=== PATIENT | male | born 1940 | race Caucasian/White ===

== ENCOUNTER 2016-11-24 17:21 | Emergency (ER) | payer OTHER ==
[~2016-11-24] VITALS: Ht 182.9 cm; Wt 100.0 kg
[~2016-11-24 17:21] MED LIST: ASPEC325 PO; CLC100 PO; FIBER SUPPLEMENT PO; GLC/500 PO; SIMV20TA2 PO; TRVOPS OP; fiber supplement PO
[2016-11-24 17:26] VITALS: TEMP 36.2; Ht 182.9 cm; Wt 100.0 kg
--- NOTE | 2016-11-24 17:52 | EMERGENCY ROOM VISIT NOTE ---
History Report prepared by Tasha: Brandon Cordova Under the Supervision of: Dr. Betty Watkins M.D. First contact with patient: 17:32 Chief Complaint: FALL Stated Complaint: FALL, HEAD INJURY History of Present Illness The patient is a 76 year old male who presents to the Emergency Room with complaints of a sudden mechanical fall that occurred prior to arrival. Per the patient's , the patient was getting out of his car to go eat at a restaurant. The patient got out, and then went to the back door of the car. At that time, the patient fell and per the patient's , the patient fell off the curb and "cracked" his head. He has a large hematoma and abrasion to his scalp from the fall. It took 3 people to get the patient up and back into the car. The patient was argumentative on the way to the ER, per the patient's . Loss of consciousness was denied. Source of History: spouse/significant other Onset: Prior to arrival Position: other (global - fall) Timing: other (sudden) Associated Symptoms: No LOC Note: Associated symptoms: Large hematoma and abrasion to scalp. Review of Systems See HPI for pertinent positives & negatives. A total of 10 systems reviewed and were otherwise negative. Past Medical & Surgical Medical Problems: (1) DM (diabetes mellitus) (2) History of kidney stones (3) HTN (hypertension) (4) Hx-Prostatic Malignancy (5) Personal History Of Colonic Polyps Surgical Problems: (1) History of cataract surgery Family History Diabetes mellitus Gallbladder disease Heart disease MOTHER Hypertension Social History Smoking Status: Former Smoker Alcohol Use: none Drug Use: none Marital Status: Housing Status: lives with family Occupation Status: retired Current/Historical Medications Scheduled Aspirin (Aspirin Ec), 81 MG PO DAILY Docusate Sodium (Colace *), 200 MG PO HS Meloxicam (Mobic), 7.5 MG PO BID Metformin Hcl (Glucophage), 1,000 MG PO BID Simvastatin (Zocor), 20 MG PO QPM Travoprost (Travatan Oph Soln 0.004% *), 1 DROP OP HS [Fiber Supplement], 2 TABS PO HS Scheduled PRN [fiber supplement], 1 TAB PO QAM PRN for PRN Allergies Coded Allergies: No Known Allergies (Unverified , 07/13/15) Physical Exam Vital Signs Date Time Temp Pulse Resp B/P Pulse Ox O2 Delivery O2 Flow Rate FiO2 11/24/16 18:21 75 11/24/16 18:15 80 16 145/89 97 Room Air 78 153/88 81 11/24/16 17:26 36.2 83 18 159/87 97 Room Air Physical Exam CONSTITUTIONAL: Mild painful distress. HEENT: No icterus, moist mucous membranes NECK: No meningismus, trachea is midline. CARDIOVASCULAR: Regular rate, normal perfusion RESPIRATORY: Unlabored breathing. Clear to auscultation. GASTROINTESTINAL: Non-tender GENITOURINARY: No flank tenderness MUSCULOSKELETAL: Full range of motion NEUROLOGIC: No acute gross focal deficits. PSYCHIATRIC: Normal affect SKIN: Large hematoma and abrasion to occiput. Medical Decision & Procedures ER Provider Diagnostic Interpretation: CT results as stated below per my review and radiologist interpretation. CT HEAD WITHOUT CONTRAST (CT) CLINICAL HISTORY: Head pain status post trauma COMPARISON STUDY: No previous studies for comparison. TECHNIQUE: Axial CT of the brain is performed from the vertex to the skull base. IV contrast was not administered for this examination. CT DOSE: FINDINGS: No intra or extra-axial mass lesions are visualized. There is no CT evidence of acute cortical infarction. There is no evidence of midline shift. There is no acute hemorrhage. No calvarial fractures are visualized. There are patchy white matter hypodensities likely on a small vessel basis. There is mild ventricular dilatation, likely secondary to volume loss. There is no evidence of acute sinusitis. There is a posterior scalp hematoma. IMPRESSION: Posterior scalp hematoma. No acute intracranial findings. Electronically signed by: Armand Hsu M.D. 11/24/2016 6:12 PM Dictated Date/Time: 11/24/2016 6:[address] OF THE CERVICAL SPINE CLINICAL HISTORY: Neck pain status post trauma COMPARISON STUDY: No previous studies for comparison. CT DOSE: 1058.44 mGy.cm TECHNIQUE: CT scan of the cervical spine was performed from the skull base to the thoracic inlet. Images are reviewed in the axial, sagittal, and coronal planes. IV contrast was not administered for this examination. FINDINGS: The visualized portions of the lung apices reveal no evidence of pneumothorax. The prevertebral soft tissues are normal. No acute fractures or traumatic subluxations are visualized. There are advanced multilevel degenerative changes. There is prominent posterior ossific spurring at the C5-6 and C6-7 levels. There is multilevel spinal stenosis. There is 4 mm of anterior subluxation of C3 on C4. This is likely degenerative. IMPRESSION: 1. Advanced multilevel degenerative changes with multilevel spinal stenosis 2. 4 mm of anterior subluxation of C3 on C4. This is felt to be degenerative 3. No evidence of acute fracture or traumatic subluxation Electronically signed by: Armand Hsu M.D. 11/24/2016 6:17 PM Dictated Date/Time: 11/24/2016 6:14 PM Laboratory Results Test 11/24/16 18:02 Bedside Hemoglobin 13.3 g/dl (14.0-18.0) Bedside Hematocrit 39 % (42-52) Bedside Sodium 140 mEq/L (135-144) Bedside Potassium 4.1 mEq/L (3.3-5.0) Bedside Chloride 103 mEq/L (101-112) Bedside Total CO2 24 mEq/l (24-31) Anion Gap 19.0 mmol/L (16-25) Bedside Blood Urea Nitrogen 28 mg/dl (7-18) Bedside Creatinine 0.6 mg/dl (0.6-1.3) Bedside Glucose (other) 142 mg/dl (70-99) Bedside Ionized Calcium (Bruno) 1.23 mmol/l (1.12-1.32) Labs reviewed by ED physician. ECG Indication: other (fall) Rate (beats per minute): 80 Rhythm: normal sinus Findings: other (normal axis, nonspecific-ST findings, normal intervals) ED Course 1739: Past medical records reviewed. The patient was evaluated in room C5. A complete history and physical examination was performed. 0: I reevaluated the patient and he is resting comfortably. The patient and his verbally expressed understanding and agreement of the treatment plan. The patient will be discharged. Medical Decision Differential diagnoses include: intracranial bleed, skull fracture, C-spine fracture, dysrhythmia. 76-year-old presents to the emergency department for evaluation after mechanical fall. He has been in his otherwise normal state of health was going to go out to dinner with his for their 54th anniversary. He had a large hematoma and abrasion to the occiput. He is acting normally without loss of consciousness. CT head and C-spine normal. I-STAT and orthostatics satisfactory. Patient has a long-standing history of chronic knee pain without acute change and mild gait dysfunction at baseline today. Patient appears jovial in no distress at the time of discharge 7:00pm. Impression Primary Impression: Head injury Scribe Attestation The scribe's documentation has been prepared under my direction and personally reviewed by me in its entirety. I confirm that the note above accurately reflects all work, treatment, procedures, and medical decision making performed by me. Departure Information Dispostion Home / Self-Care Referrals Pro,Benito Gustafson M.D. (PCP) Forms HOME CARE DOCUMENTATION FORM, IMPORTANT VISIT INFORMATION Patient Instructions ED Head Injury Closed, My [facility]
[2016-11-24 18:13] LABS: ISTAT CREATININE 0.6 mg/dl (0.6-1.3); ISTAT HEMOGLOBIN 13.3 g/dl (14.0-18.0); ISTAT IONIZED CALCIUM 1.23 mmol/l (1.12-1.32)
--- NOTE | 2016-11-24 18:13 | DIAGNOSTIC IMAGING REPORT ---
CT HEAD WITHOUT CONTRAST (CT) CLINICAL HISTORY: Head pain status post trauma COMPARISON STUDY: No previous studies for comparison. TECHNIQUE: Axial CT of the brain is performed from the vertex to the skull base. IV contrast was not administered for this examination. CT DOSE: FINDINGS: No intra or extra-axial mass lesions are visualized. There is no CT evidence of acute cortical infarction. There is no evidence of midline shift. There is no acute hemorrhage. No calvarial fractures are visualized. There are patchy white matter hypodensities likely on a small vessel basis. There is mild ventricular dilatation, likely secondary to volume loss. There is no evidence of acute sinusitis. There is a posterior scalp hematoma. IMPRESSION: Posterior scalp hematoma. No acute intracranial findings. Electronically signed by: Armand Hsu M.D. 11/24/2016 6:12 PM Dictated Date/Time: 11/24/2016 6:11 PM
[2016-11-24 18:15] VITALS: BP 153/88; O2SAT 97
[2016-11-24] MEDS ORDERED: ASPI81TA28 PO (18:16)
[2016-11-24] MEDS ORDERED: MELO7.5T5 PO (18:16)
--- NOTE | 2016-11-24 18:18 | DIAGNOSTIC IMAGING REPORT ---
CT OF THE CERVICAL SPINE CLINICAL HISTORY: Neck pain status post trauma COMPARISON STUDY: No previous studies for comparison. CT DOSE: 1058.44 mGy.cm TECHNIQUE: CT scan of the cervical spine was performed from the skull base to the thoracic inlet. Images are reviewed in the axial, sagittal, and coronal planes. IV contrast was not administered for this examination. FINDINGS: The visualized portions of the lung apices reveal no evidence of pneumothorax. The prevertebral soft tissues are normal. No acute fractures or traumatic subluxations are visualized. There are advanced multilevel degenerative changes. There is prominent posterior ossific spurring at the C5-6 and C6-7 levels. There is multilevel spinal stenosis. There is 4 mm of anterior subluxation of C3 on C4. This is likely degenerative. IMPRESSION: 1. Advanced multilevel degenerative changes with multilevel spinal stenosis 2. 4 mm of anterior subluxation of C3 on C4. This is felt to be degenerative 3. No evidence of acute fracture or traumatic subluxation Electronically signed by: Armand Hsu M.D. 11/24/2016 6:17 PM Dictated Date/Time: 11/24/2016 6:14 PM
[2016-11-24 18:21] VITALS: PULSE 75
== END 2016-11-24 19:17 | disposition home or self-care (01) ==
LOC: C.EDB 17:22 → C.EDC 19:17
DX: S00.03XA Contusion of scalp, initial encounter (principal); S00.01XA Abrasion of scalp, initial encounter; W10.1XXA Fall (on)(from) sidewalk curb, initial encounter; Y92.481 Parking lot as the place of occurrence of the external cause; E11.9 Type 2 diabetes mellitus without complications; I10 Essential (primary) hypertension; Z85.46 Personal history of malignant neoplasm of prostate; Z87.442 Personal history of urinary calculi; Z83.3 Family history of diabetes mellitus; Z82.49 Family history of ischemic heart disease and other diseases of the circulatory system

== ENCOUNTER → 2016-12-21 | Outpatient (CLI) | payer OTHER ==
[~2016-12-21] MED LIST changes: -ASPEC325 PO; +ASPI81TA28 PO; +MELO7.5T5 PO; +SULF800T23 PO; +TRAV0.00 OP
[2016-12-21 09:43] LABS: BASO % 0.4 %; BASO ABS # 0.02 K/uL (0-0.2); COMPLETE YES; EOS % 5.7 %; HEMATOCRIT 39.8 % (42-52); IG% 0.4 %; LYMPH % 11.6 %; LYMPH ABS # 0.61 K/uL (1.2-3.4); MEAN CELL VOLUME 89.2 fL (80-100); MEAN CORPUSCULAR HEMOGLOBIN 30.7 pg (25-34); MEAN CORPUSCULAR HGB CONC 34.4 g/dl (32-36); MEAN PLATELET VOLUME 9.7 fL (7.4-10.4); MONO % 11.4 %; NEUT % 70.5 %; PLATELET COUNT 217 K/uL (130-400); RED BLOOD COUNT 4.46 M/uL (4.7-6.1); WHITE BLOOD COUNT 5.25 K/uL (4.8-10.8)
[2016-12-21 10:01] LABS: ESTIMATED AVERAGE GLUCOSE 151 mg/dl; HA1C FLAG Normal (Normal)
[2016-12-21 10:13] LABS: BLOOD UREA NITROGEN 24 mg/dl (7-18); CREATININE 0.75 mg/dl (0.60-1.40); GLUCOSE 142 mg/dl (70-99)
[2016-12-21 10:14] LABS: ALT/SGPT 25 U/L (12-78); AST/SGOT 14 U/L (15-37); BUN/CREATININE RATIO 32.5 (10-20); CALCIUM 9.4 mg/dl (8.5-10.1); CARBON DIOXIDE 26 mmol/L (21-32); CHLORIDE 107 mmol/L (98-107); CHOLESTEROL 137 mg/dl (0-200); POTASSIUM 4.2 mmol/L (3.5-5.1); SODIUM 141 mmol/L (136-145)
[2016-12-21 10:17] LABS: CHOLESTEROL/HDL RATIO 2.2; FERRITIN 55.9 ng/ml (8.0-388.0); HDL CHOLESTEROL 63 mg/dl; LDL CHOLESTEROL CALCULATED 56 mg/dl; TOTAL IRON BINDING CAPACITY 327 mcg/dl (250-450); TRIGLYCERIDES 91 mg/dl (0-150); VERY LOW DENSITY LIPOPROT CALC 18 mg/dl
[2016-12-21 13:40] LABS: URINE APPEARANCE TURBID (CLEAR); URINE BILIRUBIN NEG (NEG); URINE COLOR YELLOW; URINE EPITHELIAL CELL AUTO 0-5 /lpf (0-5); URINE NITRITE NEG (NEG); URINE SPECIFIC GRAVITY 1.018 (1.000-1.030); UROBILINOGEN NEG (NEG)
[2016-12-21 13:42] LABS: MANUAL MICROSCOPIC REQUIRED? NO; REVIEW REQ? NO
== END | disposition home or self-care (01) ==
LOC: C.LAB1850 08:42
PROVIDERS: ATTEND Internal Medicine
DX: E11.9 Type 2 diabetes mellitus without complications (principal); R39.15 Urgency of urination; E78.5 Hyperlipidemia, unspecified; M79.604 Pain in right leg

== ENCOUNTER → 2017-01-09 | Outpatient (CLI) | payer OTHER ==
[2017-01-09 12:02] LABS: URINE APPEARANCE CLEAR (CLEAR); URINE BILIRUBIN NEG (NEG); URINE COLOR YELLOW; URINE EPITHELIAL CELL AUTO 0-5 /lpf (0-5); URINE NITRITE NEG (NEG); URINE SPECIFIC GRAVITY 1.021 (1.000-1.030); UROBILINOGEN NEG (NEG)
[2017-01-09 12:16] LABS: MANUAL MICROSCOPIC REQUIRED? NO; REVIEW REQ? YES
== END | disposition home or self-care (01) ==
LOC: C.LAB1850 10:33
PROVIDERS: ATTEND Internal Medicine
DX: R39.15 Urgency of urination (principal)

== ENCOUNTER → 2017-01-27 | Outpatient (CLI) | payer OTHER ==
[~2017-01-27] MED LIST changes: +CHOL1000 PO; +DOCU-94 PO; +FIBETAB2 PO
[2017-01-27 15:20] LABS: BLOOD UREA NITROGEN 22 mg/dl (7-18)
[2017-01-27 16:45] LABS: LYME DISEASE AB IGG NEG (NEG); LYME DISEASE AB IGM NEG (NEG)
== END | disposition home or self-care (01) ==
LOC: C.LAB1850 13:30
PROVIDERS: ATTEND Psychiatry & Neurology Neurology
DX: C61 Malignant neoplasm of prostate (principal); R26.81 Unsteadiness on feet; M79.604 Pain in right leg; M79.605 Pain in left leg; R41.3 Other amnesia

== ENCOUNTER → 2017-02-01 | Outpatient (CLI) | payer OTHER ==
[~2017-02-01] MED LIST changes: +GADAVIST IV PRN
--- NOTE | 2017-02-01 11:02 | DIAGNOSTIC IMAGING REPORT ---
MRI OF THE BRAIN WITHOUT AND WITH IV CONTRAST CLINICAL HISTORY: GAIT INSTABILITY, BILATERAL LEG PAIN, URINARY INCONTINENCE UPPER MOTOR NEURON SIGNS. COMPARISON STUDY: Head CT dated 11/24/2016 TECHNIQUE: MRI of the brain was performed from the vertex to the skull base utilizing various T1 and T2 weighted sequences. Following the IV administration of 9.9 mL of Gadavist contrast, additional enhanced images were obtained. The patient was imaged under 0.7 Giana open MRI scanner FINDINGS: Sagittal T1, axial diffusion, proton density and T2 weighted axial, coronal FLAIR, and pre and post axial T1-weighted images were acquired. These were supplemented with post gadolinium coronal T1 weighted images. No intra or extra-axial mass lesions are visualized. Axial diffusion-weighted images reveal no evidence of acute or subacute infarction. There is stable mild ventricular dilatation, likely secondary to volume loss. Proton density T2-weighted and FLAIR images reveal scattered foci of increased T2 signal within the white matter, likely on a small vessel basis. There is also subcortical focus of increased FLAIR signal within the left parietal vertex There are no abnormal flow voids. There is no evidence of pathologic enhancement. IMPRESSION: 1. No acute intracranial findings 2. No evidence of acute or subacute infarction 3. No evidence of intracranial mass 4. Mild ventricular dilatation, likely secondary to volume loss, however, normal pressure hydrocephalus cannot be excluded given the reported clinical symptoms Electronically signed by: Armand Hsu M.D. 02/01/2017 11:01 AM Dictated Date/Time: 02/01/2017 10:58 AM
== END | disposition home or self-care (01) ==
LOC: C.OPENMRI 09:49
PROVIDERS: ATTEND Psychiatry & Neurology Neurology
DX: R26.81 Unsteadiness on feet (principal); M79.604 Pain in right leg; M79.605 Pain in left leg; R32 Unspecified urinary incontinence

== ENCOUNTER → 2017-02-21 | Outpatient (CLI) | payer OTHER ==
[~2017-02-21] MED LIST changes: -GADAVIST IV PRN
--- NOTE | 2017-02-21 15:07 | DIAGNOSTIC IMAGING REPORT ---
BONE SCAN WHOLE BODY CLINICAL HISTORY: Prostate carcinoma COMPARISON STUDY: 07/20/2015, CT scan abdomen pelvis dated 06/23/2015 FINDINGS: The patient was injected with 26.2 mCi of technetium 99m MDP. Three-hour delayed whole body images were acquired. There are foci of increased activity within the left knee and both feet consistent with degenerative/arthritic change. There are moderately intense foci of increased activity within the spine and lumbosacral junction. This is slightly more intense on the prior study. 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 There is a focus of increased activity within the left wrist, consistent with arthritic disease. There are no findings of increased activity viewed as suspicious for skeletal metastasis. IMPRESSION: No scintigraphic evidence of skeletal metastasis. Electronically signed by: Armand Hsu M.D. 02/21/2017 3:05 PM Dictated Date/Time: 02/21/2017 3:02 PM
== END | disposition home or self-care (01) ==
LOC: C.NUCL 11:01
PROVIDERS: ATTEND Urology
DX: C61 Malignant neoplasm of prostate (principal)

== ENCOUNTER → 2017-03-30 | Outpatient (CLI) | payer OTHER ==
[2017-03-30 12:48] LABS: URINE APPEARANCE TURBID (CLEAR); URINE BILIRUBIN NEG (NEG); URINE COLOR YELLOW; URINE NITRITE NEG (NEG); UROBILINOGEN NEG (NEG)
[2017-03-30 12:57] LABS: MANUAL MICROSCOPIC REQUIRED? NO; REVIEW REQ? YES
[2017-03-30 12:58] LABS: SULFASALICYLIC ACID POS (NEG)
== END | disposition home or self-care (01) ==
LOC: C.LABSPEC 10:15
PROVIDERS: ATTEND Nurse Practitioner Adult Health
DX: R31.9 Hematuria, unspecified (principal)

== ENCOUNTER → 2017-04-19 | Outpatient (CLI) | payer OTHER ==
[2017-04-19 10:14] LABS: ESTIMATED AVERAGE GLUCOSE 146 mg/dl; HA1C FLAG Normal (Normal)
[2017-04-19 10:20] LABS: CALCIUM 9.5 mg/dl (8.5-10.1)
[2017-04-19 10:29] LABS: ALT/SGPT 25 U/L (12-78); AST/SGOT 15 U/L (15-37); BLOOD UREA NITROGEN 19 mg/dl (7-18); BUN/CREATININE RATIO 27.8 (10-20); CARBON DIOXIDE 29 mmol/L (21-32); CHLORIDE 106 mmol/L (98-107); CHOLESTEROL 139 mg/dl (0-200); CHOLESTEROL/HDL RATIO 2.1; CREATININE 0.69 mg/dl (0.60-1.40); GLUCOSE 105 mg/dl (70-99); HDL CHOLESTEROL 67 mg/dl; LDL CHOLESTEROL CALCULATED 58 mg/dl; POTASSIUM 4.6 mmol/L (3.5-5.1); SODIUM 142 mmol/L (136-145); TRIGLYCERIDES 70 mg/dl (0-150); VERY LOW DENSITY LIPOPROT CALC 14 mg/dl
== END | disposition home or self-care (01) ==
LOC: C.LAB1850 09:13
PROVIDERS: ATTEND Internal Medicine
DX: I10 Essential (primary) hypertension (principal); E78.5 Hyperlipidemia, unspecified; E11.9 Type 2 diabetes mellitus without complications

== ENCOUNTER → 2017-04-26 | Outpatient (CLI) | payer OTHER ==
[~2017-04-26] MED LIST changes: -CHOL1000 PO; -DOCU-94 PO; -FIBETAB2 PO
[2017-04-26 16:30] LABS: URINE APPEARANCE CLEAR (CLEAR); URINE BILIRUBIN NEG (NEG); URINE COLOR YELLOW; URINE NITRITE NEG (NEG); URINE PH 5.5 (4.5-7.5); UROBILINOGEN NEG (NEG)
[2017-04-26 16:32] LABS: MANUAL MICROSCOPIC REQUIRED? NO; REVIEW REQ? YES
[2017-04-26 16:43] LABS: URINE MUCUS PRESENT (NONE PRSENT)
== END | disposition home or self-care (01) ==
LOC: C.LABSPEC 15:50
PROVIDERS: ATTEND Internal Medicine
DX: N39.0 Urinary tract infection, site not specified (principal)

== ENCOUNTER 2017-05-09 16:48 | Emergency (ER) | payer OTHER ==
[~2017-05-09] VITALS: Ht 177.8 cm; Wt 93.0 kg
[~2017-05-09 16:48] MED LIST changes: -SULF800T23 PO; -TRAV0.00 OP
[2017-05-09 16:52] VITALS: TEMP 36.5; Ht 177.8 cm; Wt 93.0 kg
--- NOTE | 2017-05-09 17:26 | EMERGENCY ROOM VISIT NOTE ---
ED Visit Note First contact with patient: 17:02 CHIEF COMPLAINT: Rib injury HISTORY OF PRESENT ILLNESS: This 77-year-old male patient presents to the emergency department with his complaining of pain in the left lower anterior ribs after after tripping and falling striking his ribs off of the handle of his recliner. There is increased pain with deep breathing or coughing. Attempting to ambulate is painful. Denies shortness of breath or coughing up blood. The patient rates the pain as sharp and 3/10. The patient has taken no ixwk-hom-scjqkmo medications for relief of the pain. The patient denies previous fractures to the ribs. The patient denies any other injury. The patient denies any abdominal pain, nausea, or vomiting. REVIEW OF SYSTEMS: A 6 system review of systems was completed with positives and pertinent negatives listed in the HPI. ALLERGIES: No known drug allergies MEDICATIONS: Metformin 1000 mg twice daily, Zocor 20 mg daily, Travatan drops, aspirin 81 mg daily. These medications were personally reviewed by myself with the patient and the patient's . PMH: Diabetes mellitus type 2 SOCIAL HISTORY: Quit smoking in the 1970s, does not drink alcohol. Lives at home with his . PHYSICAL EXAM: VITALS: Vitals are noted on the nurse's note and reviewed by myself. Vital signs stable. GENERAL: 77-year-old male, in no acute distress, nondiaphoretic, well-developed well-nourished. LUNGS: Clear to auscultation and breath sounds equal, no wheezes, rales, or rhonchi. HEART: Heart sounds are regular without murmurs, ectopy, gallop, or rub. CHEST: The left anterior lower chest wall is tender to palpation over the ninth through 11th ribs but there is no fracture crepitus and no ecchymosis. There is no tachypnea or dyspnea. ABDOMEN: Positive bowel sounds x 4. Normal tympanic percussion. Soft, nontender, without masses or organomegaly. No guarding or rebound tenderness. NEURO: Patient was alert and oriented to person place and time. EMERGENCY DEPARTMENT COURSE: I examined the patient. X-rays of the chest with left rib detail was reviewed by myself and the radiologist Patient: DARLIN NGUYEN Address1: [address] [place] [address] Rec: [id number] Address2: Acct ID: [id number] [facility] Zip: [place] [address] Date: 1940 Sex: M Room/Bed: Ref Phy: Benito Lehman M.D. SC: BIRD Att Phy: Report #: [id number] [place] Phy: Benito Lehman M.D. Test: RUWC Admit Phy: Ski Instructor: CHRISTOPHER Interpreting Phy: Armand Hsu M.D. Diagnosis: FALL- PAIN IN LEFT RIB AREA Ordering Phy: Delia Cox PA-C Service Date: 05/09/17 Admit Date: 05/09/17 MNE: [id number] CONF: DICTATED BY: Armand Hsu M.D.]] CC: Georges Lees M.D. Pro, Jeffrey W., M.D. Urban, Angela P., PA-C Endcc: [~ rep ct add3]] LEFT RIBS UNILATERAL WITH PA CHEST CLINICAL HISTORY: Left rib pain status post trauma COMPARISON STUDY: Chest x-ray dated 02/22/2014 FINDINGS: The erect chest reveals no pneumothorax. There is no focal pulmonary consolidation. No left-sided rib fractures are visualized. IMPRESSION: No evidence of pneumothorax. No left-sided rib fractures are visualized Electronically signed by: Armand Hsu M.D. 05/09/2017 6:25 PM Dictated Date/Time: 05/09/2017 6:24 PM The status of this report is Signed. Draft = Not yet reviewed or approved by Radiologist. Signed = Reviewed and approved by Radiologist. <AttendingPhy></AttendingPhy> <FamilyPhy>Benito Lehman M.D.</FamilyPhy> < PrimaryPhy>Benito Lehman M.D.</PrimaryPhy> <UnitNumber>[id number]</UnitNumber > <VisitNumber>[id number] DIFFERENTIAL DIAGNOSIS: Rib contusion, pneumothorax, rib fracture, intra- abdominal injury DIAGNOSIS: Left rib pain TREATMENT and DISCHARGE INSTRUCTIONS: Please use the incentive spirometer a few times each hour for the next 5 days You may use [id number] Tylenol and ibuprofen for pain relief. Alternating these medications may give you better pain relief Ibuprofen 400 mg and/or Tylenol 500 mg every 8 hours. Ibuprofen --4 HRS--> Tylenol --4 HRS--> ibuprofen --4 HRS--> Tylenol .... Please follow up with your primary care physician within one week for a recheck Return to the emergency department if you have any of the following symptoms: -Worsening pain -Difficulty breathing -Severe abdominal pain -Dark stools -Vomiting
[2017-05-09] MEDS ORDERED: SULF800T23 PO (17:27)
[2017-05-09] MEDS ORDERED: TRAV0.00 OP (17:27)
--- NOTE | 2017-05-09 18:27 | DIAGNOSTIC IMAGING REPORT ---
LEFT RIBS UNILATERAL WITH PA CHEST CLINICAL HISTORY: Left rib pain status post trauma COMPARISON STUDY: Chest x-ray dated 02/22/2014 FINDINGS: The erect chest reveals no pneumothorax. There is no focal pulmonary consolidation. No left-sided rib fractures are visualized. IMPRESSION: No evidence of pneumothorax. No left-sided rib fractures are visualized Electronically signed by: Armand Hsu M.D. 05/09/2017 6:25 PM Dictated Date/Time: 05/09/2017 6:24 PM
--- NOTE | 2017-05-09 19:15 | EMERGENCY ROOM VISIT NOTE ---
ED Visit Note First contact with patient: 17:02 Patient was seen by our PA/HONEYCOMB DECAPPER. I was involved in the patient's care and did evaluate the patient myself. I was involved in the care throughout the ER stay. The patient presents with left lower rib pain after falling. No fractured ribs by film, no pneumothorax or pulmonary contusion. There is no pain in the area of the spleen. The patient likely has contused the chest wall, he is being discharged home.
[2017-05-09 19:33] VITALS: BP 141/75; PULSE 84; O2SAT 92
== END 2017-05-09 19:34 | disposition home or self-care (01) ==
LOC: C.EDB 16:50 → C.EDC 19:34
DX: R07.81 Pleurodynia (principal); W01.0XXA Fall on same level from slipping, tripping and stumbling without subsequent striking against object, initial encounter; E11.9 Type 2 diabetes mellitus without complications; Z79.84 Long term (current) use of oral hypoglycemic drugs; Z79.82 Long term (current) use of aspirin; Z87.891 Personal history of nicotine dependence

== ENCOUNTER → 2017-05-24 | Outpatient (CLI) | payer OTHER ==
[~2017-05-24] MED LIST changes: -CLC100 PO; -FIBER SUPPLEMENT PO; -MELO7.5T5 PO; +SULF800T23 PO; +TRAV0.00 OP; -TRVOPS OP; -fiber supplement PO
[2017-05-24 15:00] LABS: URINE APPEARANCE CLEAR (CLEAR); URINE BILIRUBIN NEG (NEG); URINE COLOR YELLOW; URINE NITRITE NEG (NEG); URINE PH 5.5 (4.5-7.5); URINE SPECIFIC GRAVITY 1.017 (1.000-1.030); UROBILINOGEN NEG (NEG)
[2017-05-24 15:14] LABS: MANUAL MICROSCOPIC REQUIRED? NO; REVIEW REQ? YES
[2017-05-24 15:29] LABS: ZZUR CULT IF INDIC CLEAN CATCH YES
== END | disposition home or self-care (01) ==
LOC: C.LAB1850 13:40
PROVIDERS: ATTEND Internal Medicine
DX: N39.0 Urinary tract infection, site not specified (principal); C61 Malignant neoplasm of prostate

== ENCOUNTER → 2017-05-31 | Outpatient (CLI) | payer OTHER | END | disposition home or self-care (01) | LOC: C.PATHSPEC 16:58 → C.LABSPEC 17:04 | PROVIDERS: ATTEND Urology | DX: C61 Malignant neoplasm of prostate (principal) ==

== ENCOUNTER → 2017-09-12 | Outpatient (CLI) | payer OTHER ==
[~2017-09-12] MED LIST changes: +CHOL1000 PO; +DOCU-94 PO; +FIBETAB2 PO; -SULF800T23 PO
[2017-09-12 09:33] LABS: HEMATOCRIT 39.1 % (42-52); MEAN CORPUSCULAR HEMOGLOBIN 31.3 pg (25-34); MEAN PLATELET VOLUME 9.3 fL (7.4-10.4); PLATELET COUNT 175 K/uL (130-400); RED BLOOD COUNT 4.25 M/uL (4.7-6.1); WHITE BLOOD COUNT 3.71 K/uL (4.8-10.8)
[2017-09-12 09:44] LABS: ESTIMATED AVERAGE GLUCOSE 128 mg/dl; HA1C FLAG Normal (Normal)
[2017-09-12 10:17] LABS: BLOOD UREA NITROGEN 19 mg/dl (7-18); CREATININE 0.69 mg/dl (0.60-1.40); GLUCOSE 110 mg/dl (70-99)
[2017-09-12 10:18] LABS: ALT/SGPT 28 U/L (12-78); AST/SGOT 18 U/L (15-37); BUN/CREATININE RATIO 28.1 (10-20); CALCIUM 8.9 mg/dl (8.5-10.1); CARBON DIOXIDE 26 mmol/L (21-32); CHLORIDE 106 mmol/L (98-107); SODIUM 139 mmol/L (136-145)
[2017-09-12 10:22] LABS: ALB/GLOB RATIO 1.1 (0.9-2); ALKALINE PHOSPHATASE 65 U/L (45-117); CHOLESTEROL 130 mg/dl (0-200); CHOLESTEROL/HDL RATIO 1.9; HDL CHOLESTEROL 69 mg/dl; LDL CHOLESTEROL CALCULATED 43 mg/dl; TRIGLYCERIDES 89 mg/dl (0-150); VERY LOW DENSITY LIPOPROT CALC 18 mg/dl
== END | disposition home or self-care (01) ==
LOC: C.LAB1850 08:46
PROVIDERS: ATTEND Internal Medicine
DX: C61 Malignant neoplasm of prostate (principal); N20.0 Calculus of kidney; E11.9 Type 2 diabetes mellitus without complications; R60.9 Edema, unspecified; E78.5 Hyperlipidemia, unspecified

== ENCOUNTER → 2017-10-03 | Day surgery (SDC) | payer OTHER ==
[2017-09-07 11:00] VITALS: Ht 177.8 cm; Wt 95.5 kg
[~2017-10-03] VITALS: Ht 177.8 cm; Wt 95.5 kg
[~2017-10-03] MED LIST changes: +500ML BSS 0.3ML EPI 1:1000PF IRRIG ONE; +ACETAMINOPHEN 325 MG TAB PO PRN; +AMVISC PLUS 0.8ML SYRINGE INT OCU ONE; +ATROPINE SULFATE 0.1 MG/ML 5ML SYR IV PRN; +BSS FLUSH ONE; +EpHEDrine SULFATE INJ 50 MG/ML AMP IV PRN; +EpINEphrine INJ 1MG/ML AMP 1 MG/ML AMP ONE; +LACTATED RINGER'S 1000ML 500 ML IV SCH; +LIDOCAINE 3.5% OPH GEL PER APPLICATION CHARGE ONE; +LIDOCAINE HCL 1% MPF 2 ML VIAL ONE; +MIDAZOLAM HCL 1 MG/ML 2ML VIAL ONE; +OCUCOAT 1 ML SOLN IO ONE; +POVIDONE-IODINE OP SOLN 30 ML BTL ONE; +PROPARACAINE 0.5% OP SOLN PER DROP CHARGE OPR SCH; +TOBRAMYCIN/DEXAMETHASONE OPH OINT PER APPLN CHARGE ONE
[2017-10-03] MEDS: PHENYLEPHRINE HCL 2.5% OP SOLN PER DROP CHARGE OPR SCH ×2 (06:37→06:43)
[2017-10-03] MEDS: TROPICAMIDE 1% OP SOLN PER DROP CHARGE OPR SCH ×2 (06:38→06:44)
[2017-10-03] MEDS: CYCLOPENTOLATE HCL 1% OP SOLN PER DROP CHARGE OPR SCH ×2 (06:39→06:44)
[2017-10-03] MEDS: KETOROLAC 0.5% OP SOLN PER DROP CHARGE OPR SCH ×2 (06:40→06:45)
[2017-10-03] MEDS: GATIFLOXACIN OP SOLN PER DROP CHARGE OPR SCH ×2 (06:41→06:51)
--- NOTE | 2017-10-03 06:53 | History & Physical Bridge - SC ---
H&P Re-Evaluation Bridge Note: I have examined the patient, reviewed the History & Physical and in the interval since the performance of the History & Physical I have noted the following changes of clinical significance: No changes noted
--- NOTE | 2017-10-03 07:19 | Discharge Instructions-SurgCtr ---
Discharge Instructions Date of Service Oct 03, 2017. Visit Reason for Visit: Cataract Right Eye Discharge Discharge Diagnosis / Problem: cataract Discharge Goals Goal(s): Improve function Medications Stopped Medications Name(s): stopped metformin on 09/30/2017 Activity Recommendations Activity Limitations: per Instructions/Follow-up section Anesthesia . Post Anesthesia Instructions: If you have had General Anesthesia or IV Sedation: * Do not drive today. * Resume driving when surgeon permits. * Do not make important decisions or sign legal documents today. * Call surgeon for: 1. Temperature elevations greater than 101 degrees F. 2. Uncontrollable pain. 3. Excessive bleeding. 4. Persistent nausea and vomiting. 5. Medication intolerance (nausea, vomiting or rash). * For nausea and vomiting use only clear liquids such as: tea, soda, bouillon until nausea subsides, then gradually increase diet as tolerated. * If you have any concerns or questions, call your surgeon's office. If physician is unavailable and it is an emergency, call 911 or go to the nearest emergency room. . Diet Recommendations Home Diet: resume previous diet Procedures Procedures Performed: Right Eye Cataract Phacoemulsification With Intraocular Lens Implant Pending Studies Studies pending at discharge: no Medical Emergencies . Who to Call and When: Medical Emergencies: If at any time you feel your situation is an emergency, please call 911 immediately. . Non-Emergent Contact Non-Emergency issues call your: Regional Hr Manager . . "Provider Documentation" section prepared by Sukhdev Em. .
--- NOTE | 2017-10-03 07:19 | [facility] Operative Report ---
Operative Report Date of Service Oct 03, 2017. Operative Report 1. PREOPERATIVE DIAGNOSIS: Cataract of the right eye. 2. POSTOPERATIVE DIAGNOSIS: Same. 3. PROCEDURE: Phacoemulsification with intraocular lens implantation of the right eye. SURGEON: Dr. Sukhdev Em. ANESTHESIA: Topical Lidocaine gel, 1% Non- Preserved intracameral Lidocaine, and monitored intravenous sedation. INDICATIONS FOR THE PROCEDURE: The patient is a 77 - year-old male with a history of cataract of the right eye causing significant visual impairment. The details of the proposed procedure were explained to the patient who asked appropriate questions and following discussion of all risks, benefits and alternatives agreed to have the procedure done. 4. OPERATION AND FINDINGS: DESCRIPTION OF PROCEDURE: After informed consent was obtained, the patient was brought to the Operating Room at the [facility]. The patient was placed in a supine position and then the right eye was prepped and draped in the usual sterile fashion for intraocular surgery. A drop of topical Lidocaine gel was placed in the operative eye. A wire lid speculum was then placed in the fornices. A corneal paracentesis was then created temporally. The Non-Preserved Lidocaine was then instilled into the anterior chamber. The anterior chamber was then pressurized with viscoelastic. A 2.0 mm clear corneal incision was then created temporally. A cystotome was inserted into the anterior chamber and used to create a tear in the anterior lens capsule. This capsular tear was then used to create a small flap and the flap was dragged in a counterclockwise direction in order to create a continuous curvilinear capsulorrhexis. Hydrodissection was accomplished with balanced salt solution. Phacoemulsification of the lens nucleus was then performed in a standard cmonri-xsj-mefvwls technique. The phaco time was 25 seconds with an average power of 12 %. The remaining cortical material was removed using irrigation aspiration. The capsular bag was then filled with viscoelastic. A [employer]ch [employer] Lomb MI60L +19.0 diopters lens was then loaded into the injector and injected into the capsular bag. The remaining viscoelastic was removed with the irrigation aspiration handpiece. The wound was hydrated and then checked and found to be watertight. The intraocular pressure was checked and found to be adequate. The wire lid speculum was removed and the patient's face was cleaned and dried. TobraDex ointment was placed in the inferior fornix. The patient was discharged to the Recovery Room having tolerated the procedure well. There were no complications. The patient will be seen tomorrow in the office for follow-up. I attest to the content of the Intraoperative Record and any orders documented therein. Any exceptions are noted below.
[2017-10-03 07:22] VITALS: TEMP 36.4
[2017-10-03 07:38] VITALS: BP 141/62; PULSE 58; O2SAT 97
--- NOTE | 2017-10-03 07:47 | Anesthesiology Progress Note ---
Anesthesia Post Op Note Date & Time Oct 03, 2017 at 07:46 Vital Signs Pain Intensity: 0 Vital Signs Past 12 Hours Date Time Temp Pulse Resp B/P (MAP) Pulse Ox O2 Delivery O2 Flow Rate FiO2 10/03/17 07:38 58 16 141/62 (88) 97 Room Air 10/03/17 07:22 36.4 68 16 146/84 (104) 96 Room Air 10/03/17 06:29 36.6 83 20 115/88 (97) 95 Room Air Notes Mental Status: alert / awake / arousable, participated in evaluation Nausea / Vomiting: adequately controlled Pain: adequately controlled Airway Patency, RR, SpO2: stable & adequate BP & HR: stable & adequate Hydration State: stable & adequate Anesthetic Complications: no major complications apparent
== END | disposition home or self-care (01) ==
LOC: X.SURG 06:16
PROVIDERS: ATTEND Ophthalmology
DX: E11.36 Type 2 diabetes mellitus with diabetic cataract (principal); E78.5 Hyperlipidemia, unspecified; I10 Essential (primary) hypertension; E11.42 Type 2 diabetes mellitus with diabetic polyneuropathy; C61 Malignant neoplasm of prostate; M17.10 Unilateral primary osteoarthritis, unspecified knee; Z87.891 Personal history of nicotine dependence; Z79.82 Long term (current) use of aspirin; Z79.84 Long term (current) use of oral hypoglycemic drugs; Z79.899 Other long term (current) drug therapy

== ENCOUNTER → 2017-10-12 | Outpatient (CLI) | payer OTHER ==
[~2017-10-12] MED LIST changes: -500ML BSS 0.3ML EPI 1:1000PF IRRIG ONE; -ACETAMINOPHEN 325 MG TAB PO PRN; -AMVISC PLUS 0.8ML SYRINGE INT OCU ONE; -ATROPINE SULFATE 0.1 MG/ML 5ML SYR IV PRN; -BSS FLUSH ONE; -EpHEDrine SULFATE INJ 50 MG/ML AMP IV PRN; -EpINEphrine INJ 1MG/ML AMP 1 MG/ML AMP ONE; -LACTATED RINGER'S 1000ML 500 ML IV SCH; -LIDOCAINE 3.5% OPH GEL PER APPLICATION CHARGE ONE; -LIDOCAINE HCL 1% MPF 2 ML VIAL ONE; -MIDAZOLAM HCL 1 MG/ML 2ML VIAL ONE; -OCUCOAT 1 ML SOLN IO ONE; -POVIDONE-IODINE OP SOLN 30 ML BTL ONE; -PROPARACAINE 0.5% OP SOLN PER DROP CHARGE OPR SCH; -TOBRAMYCIN/DEXAMETHASONE OPH OINT PER APPLN CHARGE ONE
== END | disposition home or self-care (01) ==
LOC: C.LABSPEC 17:11
PROVIDERS: ATTEND Urology
DX: N39.0 Urinary tract infection, site not specified (principal)

== ENCOUNTER → 2017-11-01 | Outpatient (CLI) | payer OTHER | END | disposition home or self-care (01) | LOC: C.LABSPEC 10:43 | PROVIDERS: ATTEND Urology | DX: C61 Malignant neoplasm of prostate (principal); R39.15 Urgency of urination; N39.0 Urinary tract infection, site not specified ==

== ENCOUNTER 2017-11-17 10:17 | Emergency (ER) | payer OTHER ==
[~2017-11-17] VITALS: Ht 177.8 cm; Wt 87.3 kg
[2017-11-17 10:45] VITALS: TEMP 36.5; Ht 177.8 cm; Wt 87.3 kg
--- NOTE | 2017-11-17 11:16 | EMERGENCY ROOM VISIT NOTE ---
History Report prepared by Tasha: Isai Dejesus Under the Supervision of: Dr. Obed Torres M.D. First contact with patient: 11:07 Chief Complaint: CONSTIPATION Stated Complaint: DR LEHMAN REFFERED, UNABLE TO MOVE BOWELS Nursing Triage Summary: Constipation x5 days. 4 doses of mirilax without results. Pt feels like he has to go, but is unable. Per pts pt has not had a "good" bowel movement since last Monday when she gave him an enema, pts tried this again at home and has not had results. History of Present Illness The patient is a 77 year old male who presents to the Emergency Room with complaints of "off and on" constipation that the patient has been experiencing for the past 2.5 weeks. Per the patient's who is an RN the patient received an Enema last Monday. The Enema allowed him to pass a few hard pellets of stool. Since this Enema 5 days ago, the patient has not had a bowel movement. The patient's has administered 4 doses of MiraLAX and tried to disimpact the patient. He currently feels the need to go, but cannot. He denies any nausea, vomiting, fever, or abdominal distention. 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 A total of 10 systems reviewed and were otherwise negative. Past Medical & Surgical Medical Problems: (1) DM (diabetes mellitus) (2) History of kidney stones (3) HTN (hypertension) (4) Hx-Prostatic Malignancy (5) Personal History Of Colonic Polyps Surgical Problems: (1) History of cataract surgery Old medical records were reviewed. Nurse's notes were reviewed and I agree with. Family History Diabetes mellitus Gallbladder disease Heart disease MOTHER Hypertension Social History Smoking Status: Never Smoker Alcohol Use: none Drug Use: none Marital Status: Housing Status: lives with family Occupation Status: retired Current/Historical Medications Scheduled Aspirin (Aspirin Ec), 81 MG PO QAM Cholecalciferol (Vitamin D3), 1,000 UNIT PO QAM Docusate Sodium (Colace), 1 CAP PO DAILY Metformin Hcl (Glucophage), 1,000 MG PO BID Simvastatin (Zocor), 20 MG PO QPM Travoprost (Travatan Z), 1 DROP OP HS Trimethoprim (Proloprim), 100 MG PO BID Allergies Coded Allergies: No Known Allergies (Unverified , 10/03/17) Physical Exam Vital Signs Date Time Temp Pulse Resp B/P (MAP) Pulse Ox O2 Delivery O2 Flow Rate FiO2 11/17/17 13:40 70 20 116/86 97 Room Air 11/17/17 10:45 36.5 87 18 137/74 95 Room Air Physical Exam General: Non-ill appearing older male in no acute distress. HEENT: Normal cephalic atraumatic. Pupils are equal round and reactive to light. Extraocular movements are intact. Oropharynx is pink with moist mucous membranes. No swelling of the mouth lips or tongue. Neck: Supple with a midline trachea. No meningeal signs or stiffness, no JVD or bruits. No Stridor. Chest: Clear to auscultation bilaterally. No wheezes or rhonchi. No increased work of breathing. Heart: regular rate and rhythm. Abdomen: Soft nontender, nondistended without rebound guarding or rigidity. Extremities: No cyanosis clubbing or edema. No calf tenderness or assymetry Spine/Back. Non tender to palpation. No CVA tenderness Skin: Good turgor without rashes. Neurologic exam: Cranial nerves two through 12 are intact. Motor and sensation are intact and symmetrical throughout. Rectal: Rectal normal tone, no masses, brown stool, guaiac negative. Medical Decision & Procedures ER Provider Diagnostic Interpretation: Radiology results as stated below per my review and radiologist interpretation: ABDOMEN 2VIEW W/PA CHEST RTN CLINICAL HISTORY: Abdominal distention. Suspected bowel obstruction. COMPARISON STUDY: KUB dated 11/13/2014 FINDINGS: The heart is normal in size. There is no focal pulmonary consolidation. There is no free intraperitoneal air. Erect and supine views the abdomen reveal gas within small bowel and colonic loops. There are scattered air-fluid levels. There are no transition zones to indicate a high-grade bowel obstruction. There is a 13 mm calcification projected over the left renal pelvis. No calculi were visualized and a prior CT scan performed May 2015, and therefore it is conceivable this represents a pill fragment. IMPRESSION: 1. Scattered air-fluid levels. No conventional radiographic evidence of a high-grade bowel obstruction 2. 13 mm calcification projected over the left renal pelvis. This likely represents either a calculus, or pill fragment. Electronically signed by: Armand Hsu M.D. 11/17/2017 11:57 AM Dictated Date/Time: 11/17/2017 11:55 AM Medications Administered Medications (Trade) Dose Ordered Sig/Margarito Route Start Time Stop Time Status Last Admin Dose Admin Miscellaneous (Soap Suds Enema) 1 ea NOW STAT DE 11/17/17 12:18 11/17/17 12:20 DC 11/17/17 12:18 1 EA ED Course 1107: Past medical records reviewed. The patient was evaluated in room B12, and a complete history and physical examination were performed. 1218: Soap Suds Enema 1 1336: Nursing staff informed me that the patient had good return following enema. 1350: Upon reevaluation, the patient is resting and comfortable following Enema. I discussed the results and treatment plan with him. He verbalized agreement of the treatment plan. The patient was discharged home. Medical Decision Differential diagnosis includes; constipation, small bowel obstruction, cauda equina syndrome, and electrolyte or metabolic abnormality. This patient comes in as described above. He's complaining of constipation. He has no neurologic deficits and there is nothing to suggest cauda equina syndrome. His abdomen is benign. His acute abdominal series is no definite obstruction is large amount of stool. On rectal exam, he has normal tone and brown stool which was guaiac negative. There is no impaction which could be manually disimpacted. We did a soapsuds enema and he is feeling much better and had a large bowel movement and will be discharged home. He will return if any new problems or concerns. Impression Primary Impression: Constipation Scribe Attestation The scribe's documentation has been prepared under my direction and personally reviewed by me in its entirety. I confirm that the note above accurately reflects all work, treatment, procedures, and medical decision making performed by me. Departure Information Dispostion Home / Self-Care Referrals Benito Lehman M.D. (PCP) Forms HOME CARE DOCUMENTATION FORM, IMPORTANT VISIT INFORMATION Patient Instructions My [facility] Additional Instructions Rest. Drink plenty of fluids. Use stool softener if needed Return if: increasing pain, worsening of symptoms, numbness or weakness, fever or chills, any new problems or concerns Follow-up with your doctor next week for recheck if not 100% better and return to the ER over the weekend if symptoms worsen
[2017-11-17] MEDS ORDERED: TRIM100T PO (11:54)
--- NOTE | 2017-11-17 11:59 | DIAGNOSTIC IMAGING REPORT ---
ABDOMEN 2VIEW W/PA CHEST RTN CLINICAL HISTORY: Abdominal distention. Suspected bowel obstruction. COMPARISON STUDY: KUB dated 11/13/2014 FINDINGS: The heart is normal in size. There is no focal pulmonary consolidation. There is no free intraperitoneal air. Erect and supine views the abdomen reveal gas within small bowel and colonic loops. There are scattered air-fluid levels. There are no transition zones to indicate a high-grade bowel obstruction. There is a 13 mm calcification projected over the left renal pelvis. No calculi were visualized and a prior CT scan performed May 2015, and therefore it is conceivable this represents a pill fragment. IMPRESSION: 1. Scattered air-fluid levels. No conventional radiographic evidence of a high-grade bowel obstruction 2. 13 mm calcification projected over the left renal pelvis. This likely represents either a calculus, or pill fragment. Electronically signed by: Armand Hsu M.D. 11/17/2017 11:57 AM Dictated Date/Time: 11/17/2017 11:55 AM
[2017-11-17] MEDS ORDERED: SOAP SUDS ENEMA PR STA (12:18)
[2017-11-17 13:40] VITALS: BP 116/86; PULSE 70; O2SAT 97
== END 2017-11-17 13:58 | disposition home or self-care (01) ==
LOC: C.EDB 10:18
DX: K59.00 Constipation, unspecified (principal); E11.9 Type 2 diabetes mellitus without complications; Z87.442 Personal history of urinary calculi; I10 Essential (primary) hypertension; Z85.46 Personal history of malignant neoplasm of prostate; Z86.010 Personal history of colon polyps; Z83.3 Family history of diabetes mellitus; Z83.79 Family history of other diseases of the digestive system; Z82.49 Family history of ischemic heart disease and other diseases of the circulatory system; Z79.82 Long term (current) use of aspirin; Z79.899 Other long term (current) drug therapy

== ENCOUNTER → 2017-12-13 | Outpatient (CLI) | payer OTHER ==
[~2017-12-13] MED LIST changes: -FIBETAB2 PO; +TRIM100T PO
--- NOTE | 2017-12-13 14:07 | DIAGNOSTIC IMAGING REPORT ---
KUB HISTORY: Follow-up study in a patient with nephrolithiasis N20.0 [id number] Urinary [id number] UTI ( COMPARISON: Acute abdominal series radiographs 11/17/2017, CT abdomen and pelvis 06/23/2015 FINDINGS: The bowel gas pattern is non-obstructive. There is no organomegaly. Surgical suture material of the left upper abdomen. 13 x 7 mm density is again seen projecting in the region of the left renal pelvis. Bilateral renal shadows are partially secured by bowel gas. No definite ureteral calculi. Punctate calcifications of the pelvis suggest phleboliths. 2 mm radiodensity in the right midabdomen may reflect fecal debris or renal calculus. No pneumoperitoneum or pneumatosis. No fracture. Multilevel severe degenerative changes of the spine. Metallic seeds of the prostate are noted. IMPRESSION: 1. Unchanged 13 x 7 mm calculus is seen within the region of the left renal pelvis. 2. Punctate radiodensity projecting over the right kidney suggests renal calculus or colonic debris. 3. No ureteral calculi identified. Electronically signed by: Carlos Tyson M.D. 12/13/2017 2:05 PM Dictated Date/Time: 12/13/2017 2:02 PM
== END | disposition home or self-care (01) ==
LOC: C.LAB1850 13:39
PROVIDERS: ATTEND Urology
DX: N20.0 Calculus of kidney (principal); N39.0 Urinary tract infection, site not specified; R32 Unspecified urinary incontinence; C61 Malignant neoplasm of prostate

== ENCOUNTER → 2017-12-20 | Outpatient (CLI) | payer OTHER ==
[~2017-12-20] MED LIST changes: +OXYC-57 PO; -TRAV0.00 OP; +TRAV0.00 OPB
[2017-12-20 16:40] LABS: BASO % 0.9 %; BASO ABS # 0.04 K/uL (0-0.2); HEMATOCRIT 36.9 % (42-52); HEMOGLOBIN 12.7 g/dL (14.0-18.0); IG# 0.02 K/uL (0.00-0.02); LYMPH % 13.6 %; MEAN CELL VOLUME 91.8 fL (80-100); MEAN CORPUSCULAR HEMOGLOBIN 31.6 pg (25-34); MEAN CORPUSCULAR HGB CONC 34.4 g/dl (32-36); MEAN PLATELET VOLUME 9.6 fL (7.4-10.4); MONO ABS # 0.62 K/uL (0.11-0.59); NEUT ABS # 2.74 K/uL (1.4-6.5); PLATELET COUNT 190 K/uL (130-400); RED CELL DISTRIBUTION WIDTH CV 13.7 % (11.5-14.5); RED CELL DISTRIBUTION WIDTH SD 46.1 fL (36.4-46.3); WHITE BLOOD COUNT 4.42 K/uL (4.8-10.8)
--- NOTE | 2017-12-20 16:58 | DIAGNOSTIC IMAGING REPORT ---
TWO VIEW CHEST CLINICAL HISTORY: Nephrolithiasis. Preoperative examination. FINDINGS: PA and lateral chest radiographs are compared to study dated 11/17/2017. The PA view is degraded by patient rotation. The cardiomediastinal silhouette is unremarkable. There is mild atherosclerotic calcification of the thoracic aorta. There is mild chronic elevation of the right hemidiaphragm. Minimal bibasilar atelectasis is observed. The lungs and pleural spaces are otherwise clear. There is no pneumothorax. The skeletal structures are osteopenic. Degenerative change is seen throughout the thoracic spine. IMPRESSION: No active disease in the chest. Electronically signed by: Georges Kennedy M.D. 12/20/2017 4:57 PM Dictated Date/Time: 12/20/2017 4:56 PM
[2017-12-20 17:06] LABS: ALBUMIN 3.4 gm/dl (3.4-5.0); ALT/SGPT 26 U/L (12-78); AST/SGOT 13 U/L (15-37); BLOOD UREA NITROGEN 23 mg/dl (7-18); CARBON DIOXIDE 25 mmol/L (21-32); CREATININE 0.62 mg/dl (0.60-1.40); GLUCOSE 117 mg/dl (70-99); POTASSIUM 3.9 mmol/L (3.5-5.1); SODIUM 141 mmol/L (136-145)
[2017-12-20 17:09] LABS: ALKALINE PHOSPHATASE 59 U/L (45-117); TOTAL PROTEIN 6.7 gm/dl (6.4-8.2)
== END | disposition home or self-care (01) ==
LOC: C.CPL 16:00
PROVIDERS: ATTEND Urology
DX: Z01.810 Encounter for preprocedural cardiovascular examination (principal); N20.0 Calculus of kidney; M25.511 Pain in right shoulder

== ENCOUNTER → 2017-12-28 | Outpatient (CLI) | payer OTHER ==
[~2017-12-28] MED LIST changes: -TRIM100T PO
--- NOTE | 2017-12-28 17:34 | DIAGNOSTIC IMAGING REPORT ---
KUB CLINICAL HISTORY: N20.0 Nephrolithiasis COMPARISON STUDY: December 13, 2017 FINDINGS: There is no pathologic bowel dilatation. There is a 12 mm calcification projected over the region of the left renal pelvis. This is viewed as suspicious for a calculus. The right renal shadow is largely obscured by overlying bowel gas and fecal material. Degenerative changes are present within the spine. There are stable pelvic basin calcifications likely representing phleboliths. Metallic seeds project over the prostate region. IMPRESSION: 1. No evidence of pathologic bowel dilatation 2. 12 mm calcification projected over the left renal pelvis, possibly representing a calculus Electronically signed by: Armand Hsu M.D. 12/28/2017 5:33 PM Dictated Date/Time: 12/28/2017 5:31 PM
== END | disposition home or self-care (01) ==
LOC: C.RAD 17:06
PROVIDERS: ATTEND Urology
DX: N20.0 Calculus of kidney (principal)

== ENCOUNTER → 2017-12-29 | Day surgery (SDC) | payer OTHER ==
[2017-12-22 10:26] VITALS: Ht 177.8 cm; Wt 98.2 kg
[~2017-12-29] VITALS: Ht 177.8 cm; Wt 98.2 kg
[~2017-12-29] MED LIST changes: +ATROPINE SULFATE 0.1 MG/ML 5ML SYR IV PRN; +CIPROFLOXACIN 400MG / D5W IV SCH; +EpHEDrine SULFATE INJ 50 MG/ML AMP IV PRN; +FENTANYL CITRATE INJ 50 MCG/1 ML 2 ML VIAL IV PRN; +FENTANYL CITRATE INJ 50 MCG/1 ML 2 ML VIAL ONE; +HYDROmorphone INJ 1 MG/ML SYR IV PRN; +LACTATED RINGER'S 1000ML 1,000 ML IV SCH; +LIDOCAINE HCL 2% 2 ML VIAL (20MG/ML) ONE; +MIDAZOLAM HCL 1 MG/ML 2ML VIAL ONE; +NURSING VERBAL MED ORDER ONE; +ONDANSETRON INJ 2 MG/ML 2 ML VIAL IV PRN; +OXYCODONE/ACETAMINOPHEN 5-325 TAB PO PRN; +PHENYLEPHRINE HCL INJ 10 MG/ML VIAL ONE; +PROPOFOL IV EMULSION 10 MG/ML 20 ML VIAL IV ONE
--- NOTE | 2017-12-29 08:00 | [facility] Operative Report ---
Operative Report Operative Date Dec 29, 2017. 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 Upon arrival appropriate preoperative antibiotics were administered and general anesthesia induced. The patient was placed in supine position and the stone was localized under fluoroscopy. A total of [__2500_] shocks were delivered to the stone. There appeared to be good fragmentation of the stone. Details of this procedure can be found on the [facility] information sheet. At the conclusion of the case the patient was extubated and taken to the PACU in stable condition. There were no complications. I attest to the content of the Intraoperative Record and any orders documented therein. Any exceptions are noted below.
--- NOTE | 2017-12-29 08:02 | Discharge Instructions-SurgCtr ---
Discharge Instructions Date of Service Dec 29, 2017. Visit Reason for Visit: Stones Discharge Discharge Diagnosis / Problem: Stone Discharge Goals Goal(s): Therapeutic intervention Medications Stopped Medications Name(s): D/C ASA & Ibuprofen x 8 days and Metformin D/C x 2 days. Activity Recommendations Activity Limitations: per Instructions/Follow-up section Exercise/Sports Limitations: rest today May Resume Sexual Activity: when tolerated Shower/Bathe: no limitations Driving or Machine Use: resume 1 day after discharge Anesthesia . Post Anesthesia Instructions: If you have had General Anesthesia or IV Sedation: * Do not drive today. * Resume driving when surgeon permits. * Do not make important decisions or sign legal documents today. * Call surgeon for: 1. Temperature elevations greater than 101 degrees F. 2. Uncontrollable pain. 3. Excessive bleeding. 4. Persistent nausea and vomiting. 5. Medication intolerance (nausea, vomiting or rash). * For nausea and vomiting use only clear liquids such as: tea, soda, bouillon until nausea subsides, then gradually increase diet as tolerated. * If you have any concerns or questions, call your surgeon's office. If physician is unavailable and it is an emergency, call 911 or go to the nearest emergency room. . Instructions / Follow-Up Instructions / Follow-Up MEDICATIONS: Resume previous medications unless instructed otherwise by your surgeon. Resume pre-ESWL medication except for aspirin, coumadin or other blood thinners. __ Toradol 10 mg every 6 hours for initial pain. __ Lortab 5 mg 1-2 every 4 hours for pain. _x_ Percocet 5 mg 1-2 every 4 hours for pain. __ Macrodantin 50 mg x 3 a day. __ Flomax 1 tab daily one half (1/2) hour after supper. SPECIAL CARE INSTRUCTIONS: 1. Get KUB (x-ray) _x_ day before or day of office visit and bring x-ray to office __ get x-ray 2 days before and tell office you are getting x-rays when you call for the appointment. 2. Strain ALL urine. 3. Please call if you have a fever, chills, severe pain, or constant dribbling of urine. 4. Office phone number . FOLLOW UP VISIT: Please call the office to schedule a follow-up appointment at . Diet Recommendations Home Diet: resume previous diet Procedures Procedures Performed: Left ESWL Pending Studies Studies pending at discharge: no Medical Emergencies . Who to Call and When: Medical Emergencies: If at any time you feel your situation is an emergency, please call 911 immediately. . Non-Emergent Contact Non-Emergency issues call your: Urologist Call Non-Emergent contact if: temperature is above 101.5, your pain is not controlled . . "Provider Documentation" section prepared by Terrell Esposito. . [place] Drug Monitoring Program Search Results: patient reviewed within database
[2017-12-29 09:11] VITALS: TEMP 36.7
--- NOTE | 2017-12-29 09:19 | Anesthesia Progress Nt - [facility] ---
Anesthesia Post Op Note Date & Time Dec 29, 2017 at 09:19 Vital Signs Pain Intensity: 0 Vital Signs Past 12 Hours Date Time Temp Pulse Resp B/P (MAP) Pulse Ox O2 Delivery O2 Flow Rate FiO2 12/29/17 09:11 36.7 69 18 116/67 (83) 97 Room Air 12/29/17 09:03 69 22 97 12/29/17 09:03 70 22 12/29/17 09:02 104/74 12/29/17 09:00 36.7 98 Room Air 12/29/17 08:59 56 16 12/29/17 08:59 69 16 95 12/29/17 08:58 65 18 12/29/17 08:58 71 18 95 12/29/17 08:56 116/71 12/29/17 08:53 71 21 12/29/17 08:53 75 21 93 12/29/17 08:51 113/85 12/29/17 08:48 67 16 97 12/29/17 08:48 57 16 12/29/17 08:46 98/64 12/29/17 08:43 64 7 12/29/17 08:43 66 7 99 12/29/17 08:42 119/71 12/29/17 08:40 61 14 12/29/17 08:40 66 14 100 12/29/17 08:36 142/84 12/29/17 08:35 36.7 75 14 142/84 98 Mask 9 12/29/17 06:37 37 81 20 136/73 (94) 94 Room Air Notes Mental Status: alert / awake / arousable, participated in evaluation Pt Amnestic to Procedure: Yes Nausea / Vomiting: adequately controlled Pain: adequately controlled Airway Patency, RR, SpO2: stable & adequate BP & HR: stable & adequate Hydration State: stable & adequate Anesthetic Complications: no major complications apparent
[2017-12-29 09:37] VITALS: BP 122/69; PULSE 72; O2SAT 98
== END | disposition home or self-care (01) ==
LOC: X.SURG 06:04
PROVIDERS: ATTEND Urology
DX: N20.0 Calculus of kidney (principal); E78.5 Hyperlipidemia, unspecified; E66.9 Obesity, unspecified; E11.9 Type 2 diabetes mellitus without complications; M25.511 Pain in right shoulder; R26.81 Unsteadiness on feet; I10 Essential (primary) hypertension; M17.10 Unilateral primary osteoarthritis, unspecified knee; Z90.49 Acquired absence of other specified parts of digestive tract; Z87.891 Personal history of nicotine dependence; Z79.82 Long term (current) use of aspirin; Z85.46 Personal history of malignant neoplasm of prostate

== ENCOUNTER → 2018-01-11 | Outpatient (CLI) | payer OTHER ==
[~2018-01-11] MED LIST changes: -ATROPINE SULFATE 0.1 MG/ML 5ML SYR IV PRN; -CIPROFLOXACIN 400MG / D5W IV SCH; -EpHEDrine SULFATE INJ 50 MG/ML AMP IV PRN; -FENTANYL CITRATE INJ 50 MCG/1 ML 2 ML VIAL IV PRN; -FENTANYL CITRATE INJ 50 MCG/1 ML 2 ML VIAL ONE; -HYDROmorphone INJ 1 MG/ML SYR IV PRN; -LACTATED RINGER'S 1000ML 1,000 ML IV SCH; -LIDOCAINE HCL 2% 2 ML VIAL (20MG/ML) ONE; -MIDAZOLAM HCL 1 MG/ML 2ML VIAL ONE; -NURSING VERBAL MED ORDER ONE; -ONDANSETRON INJ 2 MG/ML 2 ML VIAL IV PRN; -OXYCODONE/ACETAMINOPHEN 5-325 TAB PO PRN; -PHENYLEPHRINE HCL INJ 10 MG/ML VIAL ONE; -PROPOFOL IV EMULSION 10 MG/ML 20 ML VIAL IV ONE
--- NOTE | 2018-01-11 09:15 | DIAGNOSTIC IMAGING REPORT ---
KUB CLINICAL HISTORY: 77 years-old Male presenting with N20.0 nephrolithiasis. TECHNIQUE: Single supine view of the abdomen was obtained. COMPARISON: CT from 06/23/2015 and plain radiographs from 11/17/2017, 12/13/2017, and 12/28/2017. FINDINGS: Moderate stool burden in the right colon and rectum. No bowel obstruction. Allowing for bowel gas and stool, at the site of the previously noted calculus projecting over the region of the left renal pelvis is a cluster of calcifications. Stable appearance of the punctate calcification at the lower pole the right kidney. No calcifications along the courses of the ureters. Stable distribution of pelvic phleboliths. Fiducial markers in the prostate again noted. Degenerative changes of the spine. Lung bases clear. IMPRESSION: 1. Cluster of calculi projecting over the left renal pelvis at the site of prior 12 mm calculus. This could imply fragmentation. 2. Stable punctate right renal calculus. 3. No ureteral calculi. Electronically signed by: Eran Liu M.D. 01/11/2018 9:14 AM Dictated Date/Time: 01/11/2018 9:10 AM
== END | disposition home or self-care (01) ==
LOC: C.RAD1850 08:59
PROVIDERS: ATTEND Urology
DX: N20.0 Calculus of kidney (principal)

== ENCOUNTER → 2018-01-22 | Outpatient (CLI) | payer OTHER ==
[2018-01-22 09:56] LABS: HEMOGLOBIN A1C 7.8 % (4.5-5.6)
[2018-01-22 10:03] LABS: ALT/SGPT 26 U/L (12-78); AST/SGOT 12 U/L (15-37); BLOOD UREA NITROGEN 23 mg/dl (7-18); CALCIUM 9.6 mg/dl (8.5-10.1); CARBON DIOXIDE 27 mmol/L (21-32); GLUCOSE 155 mg/dl (70-99); SODIUM 138 mmol/L (136-145)
[2018-01-22 10:07] LABS: CHOLESTEROL 147 mg/dl (0-200); LDL CHOLESTEROL CALCULATED 59 mg/dl
== END | disposition home or self-care (01) ==
LOC: C.LAB1850 08:37
PROVIDERS: ATTEND Internal Medicine
DX: E78.5 Hyperlipidemia, unspecified (principal); I10 Essential (primary) hypertension; E11.9 Type 2 diabetes mellitus without complications

== ENCOUNTER → 2018-02-12 | Outpatient (CLI) | payer OTHER ==
--- NOTE | 2018-02-12 14:19 | DIAGNOSTIC IMAGING REPORT ---
KUB CLINICAL HISTORY: 78 years-old Male presenting with N20.0 [id number]. TECHNIQUE: Single supine view of the abdomen was obtained. COMPARISON: 01/11/2018. FINDINGS: Moderate stool burden throughout the large bowel. Anastomotic suture lines may be present in the left abdomen. No bowel obstruction. No gross pneumoperitoneum allowing for supine technique. Fiducial markers noted in the prostate. Punctate right renal calculi at the right lower pole. Cluster of calculi at the lower pole the left kidney. No radiographic evidence of ureteral calculi. Stable distribution of pelvic phleboliths. Degenerative changes of the spine. Lung bases clear. IMPRESSION: 1. Unchanged bilateral nephrolithiasis. No radiographic evidence of ureteral calculi allowing for moderate stool burden. Electronically signed by: Eran Liu M.D. 02/12/2018 2:17 PM Dictated Date/Time: 02/12/2018 2:14 PM
[2018-02-12 15:22] LABS: ALBUMIN 3.6 gm/dl (3.4-5.0); TOTAL PROTEIN 6.8 gm/dl (6.4-8.2)
== END | disposition home or self-care (01) ==
LOC: C.LAB1850 13:22
PROVIDERS: ATTEND Urology
DX: N20.0 Calculus of kidney (principal); C61 Malignant neoplasm of prostate

== ENCOUNTER → 2018-05-24 | Outpatient (CLI) | payer OTHER ==
[~2018-05-24] MED LIST changes: +BICA50TA40 PO; +MYR25 PO; -OXYC-57 PO
[2018-05-24 10:00] LABS: HEMATOCRIT 40.1 % (42-52); MEAN CELL VOLUME 91.1 fL (80-100); MEAN CORPUSCULAR HEMOGLOBIN 31.8 pg (25-34); MEAN CORPUSCULAR HGB CONC 34.9 g/dl (32-36); MEAN PLATELET VOLUME 9.7 fL (7.4-10.4); PLATELET COUNT 215 K/uL (130-400); RED CELL DISTRIBUTION WIDTH CV 13.3 % (11.5-14.5); RED CELL DISTRIBUTION WIDTH SD 43.8 fL (36.4-46.3); WHITE BLOOD COUNT 4.32 K/uL (4.8-10.8)
[2018-05-24 10:24] LABS: HEMOGLOBIN A1C 7.3 % (4.5-5.6)
[2018-05-24 10:35] LABS: BLOOD UREA NITROGEN 24 mg/dl (7-18); CALCIUM 9.7 mg/dl (8.5-10.1); CARBON DIOXIDE 24 mmol/L (21-32); CREATININE 0.73 mg/dl (0.60-1.40); GLUCOSE 131 mg/dl (70-99); POTASSIUM 4.3 mmol/L (3.5-5.1); SODIUM 138 mmol/L (136-145)
== END | disposition home or self-care (01) ==
LOC: C.LAB1850 08:35
PROVIDERS: ATTEND Internal Medicine
DX: E11.9 Type 2 diabetes mellitus without complications (principal); I10 Essential (primary) hypertension